=== PATIENT | male | born 1970 | race Caucasian/White ===

== ENCOUNTER 2018-11-11 10:29 | Emergency (ER) | payer OTHER ==
[~2018-11-11] VITALS: Ht 185.4 cm; Wt 127.5 kg
[2018-11-11] MEDS ORDERED: HTN PO (10:55)
[2018-11-11 11:05] LABS: ABSOLUTE EOSINOPHILS 0.1 thou/uL (0.0-0.7); ABSOLUTE LYMPHOCYTES 1.4 thou/uL (0.8-5.3); ABSOLUTE MONOCYTES 0.4 thou/uL (0.0-1.2); ABSOLUTE NEUTROPHILS 2.9 thou/uL (1.6-8.1); BASOPHILS 0.7 %; EOSINOPHILS 1.8 %; HEMATOCRIT 45.8 % (42.0-52.0); HEMOGLOBIN 15.7 gm/dL (14.0-18.0); LYMPHOCYTES 29.8 %; MCH 28.8 pg (26.0-34.0); MCHC 34.4 g/dL (28.0-37.0); MCV 83.8 fL (80.0-100.0); MONOCYTES 7.8 %; MPV 9.7 fl. (7.2-11.1); NUCLEATED RBCS 0 /100WBC; PLATELET COUNT* 171 thou/uL (150-400); POLYS 59.9 %; RBC 5.47 mil/uL (4.50-6.00); WBC 4.8 thou/uL (4.0-11.0)
[2018-11-11 11:19] LABS: ANION GAP 9 mmol/L (7-16); BUN 13 mg/dL (7-18); CALCIUM 8.4 mg/dL (8.5-10.1); CHLORIDE 103 mmol/L (98-107); CO2 29 mmol/L (21-32); CREATININE 0.9 mg/dL (0.6-1.3); GLUCOSE 130 mg/dL (70-99); POTASSIUM 3.8 mmol/L (3.5-5.1); SODIUM 141 mmol/L (136-145)
[2018-11-11 11:20] LABS: APTT 26.1 Seconds (25.0-31.3)
[2018-11-11 11:31] LABS: ALKALINE PHOSPHATASE 56 U/L (46-116); SGOT 26 U/L (15-37); SGPT 65 U/L (30-65); TOTAL BILIRUBIN 0.7 mg/dL (<0.1-1.0); TOTAL PROTEIN 7.1 g/dL (6.4-8.2); TROPONIN-I LEVEL <0.06 ng/mL (<0.06)
[2018-11-11] MEDS ORDERED: BUTALB-APAP-CA1 EACH PO (12:17)
[2018-11-11 14:09] VITALS: BP 118/85
--- NOTE | 2018-11-12 11:38 | EKG ---
[place] [address] ELECTROCARDIOGRAM REPORT Name: ROSALIA RIOS Room: [facility]#: [id number] Admission: 11/11/18 Attend Phys: Discharge: 11/11/18 Date of : 74 Report #: [id number] THIS REPORT FOR: //name// [facility] ED Test Date: 2018-11-11 Test Time: 10:44:04 Pat Name: ROSALIA RIOS Department: Room: Gender: M Digital Recruiter: KRISHNA : 1970 Requested By: Keily Lagunas Order Number: [id number] Jenniffer MD: Bennett Oneill Measurements Intervals [place] Rate: 82 P: 35 MI: 162 QRS: -31 QRSD: 98 T: 20 QT: 360 QTc: 421 Interpretive Statements Sinus rhythm Left ventricular hypertrophy No previous ECG available for comparison Electronically Signed On 11-12-2018 11:38:39 CDT by Bennett Oneill [email or web address] <ELECTRONICALLY SIGNED> By: Bennett Oneill MD, [facility] 11/12/18 1138 [id number] Bennett Oneill MD, FACC /EPI
== END 2018-11-11 14:10 | disposition home or self-care (01) ==
LOC: M.ERS 10:29
PROVIDERS: Nurse Practitioner Family
DX: R51 Headache (principal); Z86.79 Personal history of other diseases of the circulatory system; I10 Essential (primary) hypertension; E66.9 Obesity, unspecified; Z68.37 Body mass index [BMI] 37.0-37.9, adult